=== PATIENT | male | born 1940 | race Caucasian/White ===

== ENCOUNTER → 2018-10-27 | Day surgery (SDC) | payer OTHER ==
[~2018-10-27] MED LIST: CARVEDILOL6.25 M1 PO; ELIQUIS5 MG PO; LASIX 80 MG TAB80 MG PO; LEVEMIR SUBQ; NORVASC10 MG PO; NOVOLOG100 UNIT/1 SUBQ; ZOCOR20 MG PO
--- NOTE | ~2018-10-27 | PROC ---
[address] [address] PROCEDURE REPORT Name: KATHY VALDERRAMA Room: [facility].#: [id number] Admission: 10/27/18 Attend Phys: Dewayne Woods MD Discharge: Date of : 44 Report #: [id number] THIS REPORT FOR: //name// For GI report, please see the Provation report in Perceptive 7 content. By: 0657Medical Records Staff MADELYN /DOUG
[2018-10-27 08:44] LABS: HEMATOCRIT 34.2 % (42.0-52.0); MCH 32.2 pg (26.0-34.0); MCHC 34.9 g/dL (28.0-37.0); MCV 92.1 fL (80.0-100.0); MPV 7.8 fl. (7.2-11.1); RBC 3.72 mil/uL (4.50-6.00); RDW-CV 14.7 % (10.5-14.5); WBC 10.9 thou/uL (4.0-11.0)
[2018-10-27 08:54] LABS: APTT 29.6 Seconds (25.0-31.3); INR 1.1; PROTIME 10.9 Seconds (9.20-11.50)
[2018-10-27 09:00] LABS: ALBUMIN 3.6 g/dL (3.4-5.0); POTASSIUM 4.1 mmol/L (3.5-5.1); TOTAL BILIRUBIN 0.4 mg/dL (<0.1-1.0)
--- NOTE | 2018-10-27 11:07 | EKG ---
[place] [address] ELECTROCARDIOGRAM REPORT Name: KATHY VALDERRAMA Room: [facility]#: [id number] Admission: 10/27/18 Attend Phys: Dewayne Woods MD Discharge: Date of : 44 Report #: [id number] THIS REPORT FOR: //name// [facility] Test Date: 2018-10-27 Test Time: 08:40:41 Pat Name: KATHY VALDERRAMA Department: Room: Gender: Brand Advisor: : 1940 Requested By: Dewayne Woods Order Number: [id number] Reading MD: Bob Mckeon Measurements Intervals [place] Rate: 68 P: 22 NM: 226 QRS: 2 QRSD: 88 T: 45 QT: 448 QTc: 477 Interpretive Statements Sinus rhythm Prolonged NM interval Abnormal R-wave progression, early transition Borderline prolonged QT interval No previous ECG available for comparison Electronically Signed On 10-27-2018 11:07:41 CDT by Bob Mckeon [email or web address] <ELECTRONICALLY SIGNED> By: Bob Mckeon MD, [facility] 10/27/18 1107 9 Bob Mckeon MD, [facility] /EPI
--- NOTE | 2018-10-29 13:06 | PATH ---
[facility] [address] [place] [address] PATHOLOGY RPT PROCEDURE Name: BATOOLTELMAKATHY DELUNA MARIBETH Room: [facility]#: [id number] Admission: 10/27/18 Date of : 44 Discharge: Report #: [id number] Path Case #: [id number] [facility] Accession Number: [id number] . 01 Material submitted: . PART A: colon - POLYPS X4 ASCENDING COLON. Modifiers: ascending PART B: colon - POLYP TRANSVERSE COLON X5. Modifiers: transverse PART C: colon - POLYP DESCENDING COLON. Modifiers: descending PART D: rectum - POLYP RECTUM . 01 Clinical history: . Colon cancer screening . 02 Diagnosis: A. Polyps x4 ascending colon: - Multiple fragments of tubular adenoma(s) and of colonic mucosa suggesting hyperplastic polyp(s), negative for high-grade dysplasia. . B. Polyp transverse colon x5: - Multiple fragments of tubular adenoma(s), negative for high-grade dysplasia. . C. Polyp descending colon: - Tubular adenoma, negative for high-grade dysplasia. . D. Polyp rectum: - Hyperplastic polyp. (REGGIE:mima; 10/29/2018) QMS/10/29/2018 . 02 Electronically signed: . Boubacar Awad MD, Pathologist NPI- [id number] . 01 Gross description: . A. The specimen is received in formalin, labeled "Kathy Barrios, polyps x4 ascending colon". Received are five segments of pale gonzales soft tissue ranging in size from 0.4 to 0.6 cm in maximum dimensions. The specimen is submitted entirely in cassette A1. . B. The specimen is received in formalin, labeled "Kathy Barrios, polyp transverse colon x5". Received is a moderate amount of light green vegetative material of mixed with possible soft tissue measuring 3.0 x 1.8 x 0.3 cm in aggregate dimensions. The specimen is filtered and entirely submitted in cassette B1. . C. The specimen is received in formalin, labeled "Kathy Barrios, polyp descending colon". Received is a [place] [address] PATHOLOGY RPT PROCEDURE Name: KATHY BARRIOS MARIBETH Room: [facility]#: [id number] Admission: 10/27/18 Date of : 44 Discharge: Report #: [id number] Path Case #: [id number] vegetative material in it with possible soft tissue measuring 3.0 x 1.2 x 0.2 cm in aggregate dimensions. The specimen is filtered and entirely submitted in cassette C1. . D. The specimen is received in formalin, labeled "Kathy Barrios, polyp rectum". Received are three segments of pale gonzales soft tissue ranging in size from 0.4 to 0.5 cm in maximum dimensions. The specimen is submitted entirely in cassette D1. (CAA; 10/28/2018) QAC/QAC . 02 Pathologist provided ICD-10: D12.2, D12.3, D12.4, K62.1, Z12.11 . 02 CPT . 516760, 101125, 949965, 256000 Specimen Comment: A courtesy copy of this report has been sent to Specimen Comment: [phone], . Specimen Comment: Report sent to / DR RASHEED Performed at: [address], [place] [id number] MD Erik Grace MD Phone: [phone] Performed at: 02 [facility] [address], [place], [place] [id number] MD Boubacar Awad MD Phone: [phone]
== END | disposition home or self-care (01) ==
LOC: M.SUR 08:17
PROVIDERS: Internal Medicine Gastroenterology
DX: Z12.11 Encounter for screening for malignant neoplasm of colon (principal); D12.4 Benign neoplasm of descending colon; D12.3 Benign neoplasm of transverse colon; D12.2 Benign neoplasm of ascending colon; K62.1 Rectal polyp; K57.30 Diverticulosis of large intestine without perforation or abscess without bleeding; K64.8 Other hemorrhoids; I12.0 Hypertensive chronic kidney disease with stage 5 chronic kidney disease or end stage renal disease; E11.22 Type 2 diabetes mellitus with diabetic chronic kidney disease; N18.6 End stage renal disease; J44.9 Chronic obstructive pulmonary disease, unspecified; E78.5 Hyperlipidemia, unspecified; Z98.890 Other specified postprocedural states; Z87.891 Personal history of nicotine dependence; Z79.899 Other long term (current) drug therapy

== ENCOUNTER 2021-01-17 16:29 | Observation (INO) | payer MEDICARE ==
[~2021-01-17] VITALS: Ht 172.7 cm; Wt 88.7 kg
[~2021-01-17 16:29] MED LIST changes: -LEVEMIR SUBQ; +LEVEMIR100 UNIT/1 SUBQ
[2021-01-17 16:32] VITALS: BP 143/67
[2021-01-17] MEDS ORDERED: PROAIR HFA8.5 GM INH (17:23)
[2021-01-17] MEDS ORDERED: CALCIUM ACETAT667 M1 PO (17:23)
[2021-01-17] MEDS ORDERED: ATORVASTATIN CA80 MG PO (17:23)
[2021-01-17] MEDS ORDERED: PLAVIX 75 MG TA75 MG PO (17:23)
[2021-01-17] MEDS ORDERED: IMDUR 30 MG TAB30 M1 PO (17:24)
[2021-01-17] MEDS ORDERED: BREO ELLIPTA 21 EACH INH (17:24)
[2021-01-17] MEDS ORDERED: WARFARIN SODIUM5 MG PO (17:25)
[2021-01-17] MEDS ORDERED: TOPROL XL50 MG PO (17:25)
[2021-01-17 18:21] LABS: ABSOLUTE EOSINOPHILS 0.3 thou/uL (0.0-0.7); ABSOLUTE MONOCYTES 1.4 thou/uL (0.0-1.2); ABSOLUTE NEUTROPHILS 7.7 thou/uL (1.6-8.1); BASOPHILS 0.4 %; EOSINOPHILS 2.5 %; HEMATOCRIT 34.2 % (42.0-52.0); HEMOGLOBIN 11.8 gm/dL (14.0-18.0); LYMPHOCYTES 9.7 %; MCH 33.2 pg (26.0-34.0); MCHC 34.5 g/dL (28.0-37.0); MCV 96.2 fL (80.0-100.0); MONOCYTES 13.1 %; MPV 8.4 fl. (7.2-11.1); NUCLEATED RBCS 0 /100WBC; PLATELET COUNT* 367 thou/uL (150-400); POLYS 74.3 %; RBC 3.56 mil/uL (4.50-6.00); RDW-CV 15.3 % (10.5-14.5); WBC 10.3 thou/uL (4.0-11.0)
[2021-01-17 18:33] LABS: CALCIUM 8.8 mg/dL (8.5-10.1); CREATININE 3.8 mg/dL (0.6-1.3); POTASSIUM 3.9 mmol/L (3.5-5.1)
[2021-01-17 18:37] LABS: ALBUMIN 3.6 g/dL (3.4-5.0); TOTAL BILIRUBIN 0.7 mg/dL (<0.1-1.0); TOTAL PROTEIN 7.8 g/dL (6.4-8.2)
[2021-01-17 21:30] VITALS: BP 145/53
--- NOTE | 2021-01-17 22:00 | NUR ---
RECEIVED REPORT FROM ER, PT TO ROOM. TELEMETRY APPLIED SHOWING SR WITH PAC. NOTED LT AV FISSULA WITH THRILL AND BRUIT. LIMB ALERT APPLIED. MAEW. SEE ADMISSON ASSESSMENT AND HX. WILL CONT TO MONITOR AND ASSIST NEEDED.
[2021-01-18 02:54] VITALS: BP 107/54
[2021-01-18 06:08] VITALS: BP 110/64
--- NOTE | 2021-01-18 08:34 | EKG ---
[place] [address] ELECTROCARDIOGRAM REPORT Name: KATHY VALDERRAMA Room: [address]R.#: [id number] Admission: 01/17/21 Attend Phys: Caridad Lee, Discharge: Date of : 44 Date of Service: 01/17/211701 Report #: [id number] THIS REPORT FOR: //name// [facility] ED Test Date: 2021-01-17 Test Time: 17:02:22 Pat Name: KATHY VALDERRAMA Department: Room: [facility] Gender: M Bankruptcy Law Specialist: CATHERINE : 1940 Requested By: John Samaniego Order Number: [id number] MD: Bob Mckeon Measurements Intervals [place] Rate: 62 P: 57 NJ: 267 QRS: -9 QRSD: 108 T: -26 QT: 501 QTc: 509 Interpretive Statements Sinus rhythm Prolonged [place] interval RSR' in V1 or V2, right VCD or RVH Probable left ventricular hypertrophy Prolonged QT interval Compared to ECG 10/27/2018 08:40:41 Right ventricular hypertrophy now present RSR' in V1 or V2 now present Electronically Signed On 01-18-2021 8:33:41 CDT by Bob Mckeon [email or web address] <ELECTRONICALLY SIGNED> By: Bob Mckeon MD, [facility] 01/18/21 0833 01 01 Bob Mckeon MD, [facility] /EPI
[2021-01-18 08:37] VITALS: BP 107/54
[2021-01-18 12:00] VITALS: BP 100/60
--- NOTE | 2021-01-18 15:43 | NUR ---
Pt resides at home with . Independent. CM spoke with Chrissie at [facility] BS, Pt is a TTS 1115 chair time. Per Chrissie, Pt has had several hospital stays over the past few weeks. Pt planes to move back to [facility] on 01/30, outpt dialysis set up over there. Pt is home o2.
[2021-01-18 16:00] VITALS: BP 119/58
--- NOTE | 2021-01-18 19:15 | NUR ---
Pt had orders for discharge, but soon after arrived this evening she expressed great concern over pt's condition, in particular his recent falls and his shaking/jerking which is new (head shaking/jerking intermittently). Pt had been determined to discharge today because he has dialysis tomorrow, and he thinks the left arm numbness was related to accessing/deaccessing dialysis shunt, which is in his left upper arm. Dr. Amaya was paged and discussed concerns with , pt, and RN over the phone. Discharge is on hold and further workup has been ordered. Of note, pt's states that couple are scheduled to move back to [place] on 01/30 and most of their belongings have already been shipped. Will continue to monitor.
[2021-01-18 20:13] LABS: INR 1.2
[2021-01-18 20:16] LABS: ALBUMIN 3.2 g/dL (3.4-5.0); CALCIUM 7.7 mg/dL (8.5-10.1); CREATININE 6.7 mg/dL (0.6-1.3); POTASSIUM 5.6 mmol/L (3.5-5.1); TOTAL BILIRUBIN 0.6 mg/dL (<0.1-1.0)
--- NOTE | 2021-01-19 14:51 | NUR ---
PT WAS DISCHARGED FROM HOSPITAL BEFORE P.T. EVAL AND TREAT COULD BE INITIATED.
--- NOTE | 2021-01-20 23:58 | NUR ---
REPORT GIVEN TO ME AT 19:15 ON 01/18/21. I BRIEFLY SAW HIM IN HIS ROOM WHEN HE AND HIS WERE INFORMED THAT HE WAS TO GO TO CT FOR SCAN AT THAT TIME SHORTLY AFTER SHIFT CHANGE. HE WAS ALERT AND ORIENTED AND NO APPARENT DISTRESS.
[2021-01-21 04:06] LABS: GLYCOHEMOGLOBIN (HGB A1C) 7.9 % (4.8-5.6)
== END 2021-01-18 21:00 ==
LOC: M.ERS 16:29 → M.TBA-ER 19:01 → M.2W 19:01
PROVIDERS: Internal Medicine; Physician Assistant; ADMIT Internal Medicine; ATTEND Internal Medicine
DX: R53.1 Weakness (principal); Z20.822 Contact with and (suspected) exposure to COVID-19; E11.22 Type 2 diabetes mellitus with diabetic chronic kidney disease; N18.6 End stage renal disease; E78.5 Hyperlipidemia, unspecified; I50.9 Heart failure, unspecified; I25.2 Old myocardial infarction; Z79.01 Long term (current) use of anticoagulants; Z79.82 Long term (current) use of aspirin; Z79.4 Long term (current) use of insulin; Z79.899 Other long term (current) drug therapy; Z86.73 Personal history of transient ischemic attack (TIA), and cerebral infarction without residual deficits